=== PATIENT | female | born 1970 | race Caucasian/White ===

== ENCOUNTER 2023-04-16 13:41 | Emergency (ER) | payer BC ==
[2023-04-16] MEDS ORDERED: predniSONE 20 MG TAB ONE (14:09)
== END 2023-04-16 14:30 | disposition home or self-care (01) ==
LOC: BURERS 13:41
DX: M54.10 Radiculopathy, site unspecified (principal); I10 Essential (primary) hypertension
CPT/HCPCS: 99282; J7512